=== PATIENT | female | born 1985 | race Two or more races ===

== ENCOUNTER 2016-05-26 04:02 | Inpatient (IN) | payer SELFPAY ==
[2016-05-26] VITALS (12 sets, daily range): BP systolic 95–113; BP diastolic 48–68
[~2016-05-26] VITALS: Ht 160 cm; Wt 52.2 kg
[2016-05-26 04:44] LABS: BILIRUBIN,URINE NEGATIVE (NEG); GLUCOSE,URINE 500 mg/dL (NEG); NITRITE,URINE NEGATIVE (NEG); PH,URINE 5.5; PROTEIN,URINE NEGATIVE (NEG-TRACE)
[2016-05-26] MEDS ORDERED: IV NORMAL SALINE 1000ML BAG 1,000 ML IV ONE (04:45)
[2016-05-26 04:52] LABS: BASO # 0.1 x10^3/uL (0.0-0.2); BASO % 1 % (0-3); EOS % 3 % (0-3); HEMATOCRIT 25.9 % (36.0-47.0); HEMOGLOBIN 8.5 g/dL (12.0-15.5); LYMPH # 1.3 x10^3/uL (1.0-4.8); LYMPH % 11 % (24-48); MEAN CORPUSCULAR HEMOGLOBIN 28 pg (25-35); MEAN CORPUSCULAR HGB CONC 33 g/dL (31-37); MEAN CORPUSCULAR VOLUME 86 fL (79-100); MONO % 7 % (0-9); NEUT % 77 % (31-73); PLATELET COUNT 234 x10^3/uL (140-400); RED BLOOD COUNT 3.02 x10^6/uL (3.50-5.40); RED CELL DISTRIBUTION WIDTH 14.5 % (11.5-14.5); WHITE BLOOD COUNT 11.3 x10^3/uL (4.0-11.0)
[2016-05-26] MEDS ORDERED: MORPHINE SULFATE 4 MG/ML DISP.SYRIN. IV ONE (05:00)
[2016-05-26 05:04] LABS: BACTERIA,URINE 0 /HPF (0-FEW); RBC,URINE >40 /HPF (0-2); SQUAMOUS EPITHELIAL CELL,UR FEW /LPF
--- NOTE | 2016-05-26 05:12 | PHYS DOC ---
Adult General Chief Complaint Chief Complaint: ABDOMINAL PAIN HPI HPI This is a 31-year-old Divehi-speaking female presents with extensive lower abdominal pain that does radiate into her right shoulder. She is also complaining of some spotting. Patient had a ultrasound several days ago at an outpatient clinic that demonstrated possible ectopic. Pt is at an estimated 3-4 weeks gestation by LMP. This is her third , the first two were full term vaginal deliveries without complication. Pt appears in acute distress and mildly pale. Review of Systems Review of Systems Constitutional: Denies fever or chills [] Eyes: Denies change in visual acuity, redness, or eye pain [] HENT: Denies nasal congestion or sore throat [] Respiratory: Denies cough or shortness of breath [] Cardiovascular: No additional information not addressed in HPI [] GI: Has abdominal pain, nausea, vomiting, bloody stools or diarrhea [] : Denies dysuria or hematuria [] Musculoskeletal: Denies back pain or joint pain [] Integument: Denies rash or skin lesions [] Neurologic: Denies headache, focal weakness or sensory changes [] Endocrine: Denies polyuria or polydipsia [] Current Medications Current Medications Current Medications Medications (Trade) Dose Ordered Sig/Eduardo Start Time Stop Time Status Last Admin Dose Admin Morphine Sulfate 4 mg 1X ONCE 05/26/16 05:00 05/26/16 05:07 DC 05/26/16 04:52 4 MG Sodium Chloride (Iv Sodium Chloride 0.9% 1000ml Bag) 1,000 ml @ 1,000 mls/hr 1X ONCE 05/26/16 04:45 05/26/16 05:44 DC 05/26/16 04:53 1,000 MLS/HR Allergies Allergies Allergies Coded Allergies Type Severity Reaction Last Updated Verified No Known Drug Allergies 05/26/16 No Physical Exam Physical Exam Constitutional: Well developed, well nourished, no acute distress, non-toxic appearance. [] HENT: Normocephalic, atraumatic, bilateral external ears normal, oropharynx moist, no oral exudates, nose normal. [] Eyes: PERRLA, EOMI, conjunctiva normal, no discharge. [] Neck: Normal range of motion, no tenderness, supple, no stridor. [] Cardiovascular:Heart rate regular rhythm, no murmur [] Lungs & Thorax: Bilateral breath sounds clear to auscultation [] Abdomen: Bowel sounds normal, soft, lower abdominal tenderness, no masses, no pulsatile masses. [] Skin: Warm, dry, no erythema, no rash. [] Back: No tenderness, no CVA tenderness. [] Extremities: No tenderness, no cyanosis, no clubbing, ROM intact, no edema. [] Neurologic: Alert and oriented X 3, normal motor function, normal sensory function, no focal deficits noted. [] Psychologic: Affect normal, judgement normal, mood normal. [] Current Patient Data Vital Signs Vital Signs Date Time Temp Pulse Resp B/P Pulse Ox O2 Delivery O2 Flow Rate FiO2 05/26/16 05:00 90 99 Room Air 05/26/16 04:30 101/57 05/26/16 04:15 98.8 24 98.8 Lab Values Laboratory Tests Test 05/26/16 03:37 05/26/16 04:13 05/26/16 04:30 POC Urine HCG, Qualitative Hcg positive (Negative) Urine Collection Type Unknown Urine Color Yellow Urine Clarity Clear Urine pH 5.5 Urine Specific [place] >=1.030 Urine Protein Negativemg/dL (NEG-TRACE) Urine Glucose (UA) 500mg/dL (NEG) Urine Ketones (Stick) Negativemg/dL (NEG) Urine Blood Large (NEG) Urine Nitrite Negative (NEG) Urine Bilirubin Negative (NEG) Urine Urobilinogen Dipstick 1.0mg/dL (0.2 mg/dL) Urine Leukocyte Esterase Negative (NEG) Urine RBC >40/HPF (0-2) Urine WBC 1-4/HPF (0-4) Urine Squamous Epithelial Cells Few/LPF Urine Bacteria 0/HPF (0-FEW) Urine Mucus Mod/LPF White Blood Count 11.3x10^3/uL (4.0-11.0) H Red Blood Count 3.02x10^6/uL (3.50-5.40) L Hemoglobin 8.5g/dL (12.0-15.5) L Hematocrit 25.9% (36.0-47.0) L Mean Corpuscular Volume 86fL (79-100) Mean Corpuscular Hemoglobin 28pg (25-35) Mean Corpuscular Hemoglobin Concent 33g/dL (31-37) Red Cell Distribution Width 14.5% (11.5-14.5) Platelet Count 234x10^3/uL (140-400) Neutrophils (%) (Auto) 77% (31-73) H Lymphocytes (%) (Auto) 11% (24-48) L Monocytes (%) (Auto) 7% (0-9) Eosinophils (%) (Auto) 3% (0-3) Basophils (%) (Auto) 1% (0-3) Neutrophils # (Auto) 8.7x10^3uL (1.8-7.7) H Lymphocytes # (Auto) 1.3x10^3/uL (1.0-4.8) Monocytes # (Auto) 0.8x10^3/uL (0.0-1.1) Eosinophils # (Auto) 0.4x10^3/uL (0.0-0.7) Basophils # (Auto) 0.1x10^3/uL (0.0-0.2) Maternal Serum HCG Beta Subunit 825mIU/mL (0-6) H Sodium Level 138mmol/L (136-145) Potassium Level 3.7mmol/L (3.5-5.1) Chloride Level 103mmol/L (98-107) Carbon Dioxide Level 26mmol/L (21-32) Anion Gap 9 (6-14) Blood Urea Nitrogen 13mg/dL (7-20) Creatinine 0.7mg/dL (0.6-1.0) Estimated GFR (Cockcroft-Gault) 97.6 BUN/Creatinine Ratio 19 (6-20) Glucose Level 113mg/dL (70-99) H Calcium Level 8.6mg/dL (8.5-10.1) Total Bilirubin 0.5mg/dL (0.2-1.0) Aspartate Amino Transferase (AST) 11U/L (15-37) L Alanine Aminotransferase (ALT) 13U/L (14-59) L Alkaline Phosphatase 61U/L (46-116) Total Protein 7.2g/dL (6.4-8.2) Albumin 3.8g/dL (3.4-5.0) Albumin/Globulin Ratio 1.1 (1.0-1.7) Laboratory Tests 05/26/16 04:30 Laboratory Tests 05/26/16 04:30 EKG EKG [] Radiology/Procedures Radiology/Procedures Obstetric ultrasound less than 14 weeks with transvaginal imaging. Reason for examination: Severe right-sided pelvic pain and right shoulder discomfort. Bleeding for 4 days. Patient tail and diaphoretic. Positive urine test. Transabdominal and transvaginal ultrasound examination of the pelvis was performed. Examination is limited by patient's pain. The uterus appears to measure approximately 7.9 x 3.9 x 5.7 centimeters in greatest dimensions. The endometrium is not thickened at 3 millimeters. There is no evidence of intrauterine gestation. There is free fluid present in the abdomen. The fluid extends up to the right hepatorenal space. Transvaginally, an intrauterine gestation is not identified. The left ovary measures 3.2 x 2.3 x 2.0 centimeters in greatest dimensions. Again evident is large amount of free fluid. The right ovary is not identified. Impression: No evidence of intrauterine gestation. Large amount of free fluid in the abdomen and pelvis. Ruptured ectopic cannot be excluded. Course & Med Decision Making Course & Med Decision Making Pertinent Labs and Imaging studies reviewed. (See chart for details) This 31-year-old female who has ultrasound findings concerning for possible ruptured ectopic was immediately transferred to the OR for emergent salpingectomy. Her Hgb was 8.5. Her serum quant was 825. Pt was type and crossed for multiple units of blood and given a fluid bolus while in the department. I discussed the emergent nature of the case with the OBGYN, Dr. Ramos , who agreed to come in for emergent salpingectomy. She was transferred to the OR without incident. Dragon Disclaimer Dragon Disclaimer This electronic medical record was generated, in whole or in part, using a voice recognition dictation system. Departure Departure Impression: Primary Impression: Ruptured ectopic Disposition: ADMITTED INPATIENT Admitting Physician: Other Condition: GUARDED Referrals: NO PCP (PCP) JESSICA BOB DO May 26, 2016 05:12
[2016-05-26] MEDS ORDERED: ONDANSETRON PF 4 MG/2 ML VIAL. IV PRN ×2 (05:15→08:45)
[2016-05-26] MEDS ORDERED: IV NORMAL SALINE 1000ML BAG 1,000 ML IV SCH (05:15)
[2016-05-26 05:19] LABS: CALCIUM 8.6 mg/dL (8.5-10.1); CREATININE 0.7 mg/dL (0.6-1.0); GFR 97.6; POTASSIUM 3.7 mmol/L (3.5-5.1)
[2016-05-26 05:26] LABS: ALBUMIN 3.8 g/dL (3.4-5.0); ALBUMIN/GLOBULIN RATIO 1.1 (1.0-1.7); TOTAL BILIRUBIN 0.5 mg/dL (0.2-1.0); TOTAL PROTEIN 7.2 g/dL (6.4-8.2)
[2016-05-26] MEDS: MORPHINE SULFATE 4 MG/ML DISP.SYRIN. IV PRN ×2 (05:33→13:38)
--- NOTE | 2016-05-26 05:39 | RAD ---
Obstetric ultrasound less than 14 weeks with transvaginal imaging. Reason for examination: Severe right-sided pelvic pain and right shoulder discomfort. Bleeding for 4 days. Patient tail and diaphoretic. Positive urine test. Transabdominal and transvaginal ultrasound examination of the pelvis was performed. Examination is limited by patient's pain. The uterus appears to measure approximately 7.9 x 3.9 x 5.7 centimeters in greatest dimensions. The endometrium is not thickened at 3 millimeters. There is no evidence of intrauterine gestation. There is free fluid present in the abdomen. The fluid extends up to the right hepatorenal space. Transvaginally, an intrauterine gestation is not identified. The left ovary measures 3.2 x 2.3 x 2.0 centimeters in greatest dimensions. Again evident is large amount of free fluid. The right ovary is not identified. Impression: No evidence of intrauterine gestation. Large amount of free fluid in the abdomen and pelvis. Ruptured ectopic cannot be excluded. Electronically signed by: Ramona Hummel MD (May 26, 2016 05:37:31)
[2016-05-26] MEDS ORDERED: LIDOCAINE 2% 100 MG/5 ML DISP.SYRIN. ONE (06:11)
[2016-05-26] MEDS ORDERED: DEXAMETHASONE SOD PHOS 20 MG/5 ML VIAL. ONE (06:11)
[2016-05-26] MEDS ORDERED: SUCCINYLCHOLINE 200 MG/10 ML VIAL. ONE (06:11)
[2016-05-26] MEDS ORDERED: ONDANSETRON PF 4 MG/2 ML VIAL. ONE (06:11)
[2016-05-26] MEDS ORDERED: FENTANYL PF 100 MCG/2 ML VIAL. ONE ×2 (06:11→08:43)
[2016-05-26] MEDS ORDERED: PROPOFOL 20 ML IV ONE (06:11)
[2016-05-26] MEDS ORDERED: LORAZEPAM 2 MG/ML VIAL IV ONE (06:15)
--- NOTE | 2016-05-26 06:48 | HP ---
ADMIT DATE: 05/26/2016 HISTORY OF PRESENT ILLNESS: This patient is a 31-year-old lady who is a 3, para 2, last menstrual period 04/2016, comes to the Emergency Room because of vaginal bleeding associated with a acute pelvic pain and patient was seen by the ER physician and because of the bleeding and also test was positive, quantitative HCG being 820, she was seen in consultation because of the ectopic . PHYSICAL EXAMINATION: VITAL SIGNS: Being stable right now. Her hemoglobin is 8. The patient in acute pelvic pain. LUNGS: Clear. HEART: Sounds regular sinus rhythm. ABDOMEN: Quite tender in the pelvic area. PELVIC: Shows moderate vaginal bleeding. On bimanual exam, uterus feels slightly bulky and quite a bit of tenderness in the left adnexal area. Her sonogram shows marked amount of fluid in the abdomen and pelvis. DIAGNOSIS: Acute pelvic pain, possible ectopic with rupture. PLAN: Admission and emergency laparotomy, possible salpingectomy. The details of the surgery, the risks, and complications have been explained to the patient and she is willing for the surgery at the present time. PEACE L[address] MD DR: CHELE/patricia JOB#: [id number] / [id number]
[2016-05-26] MEDS ORDERED: CEFAZOLIN 2GM PREMIX 50 ML IV ONE (07:18)
[2016-05-26] MEDS ORDERED: PHENYLEPHRINE in 0.9% NACL PF 1 MG/10 ML DISP.SYRIN. IV ONE (07:38)
[2016-05-26] MEDS ORDERED: SEVOFLURANE 31 TO 60 MINUTES. IH ONE (07:41)
[2016-05-26] MEDS ORDERED: ROCURONIUM 50 MG/5 ML VIAL. ONE (07:46)
[2016-05-26] MEDS ORDERED: NEOSTIGMINE METHYLSULFATE 5 MG/5 ML SYRINGE. ONE (08:21)
[2016-05-26] MEDS ORDERED: GLYCOPYRROLATE 1 MG/5 ML VIAL. ONE (08:21)
[2016-05-26] MEDS ORDERED: SEVOFLURANE 61 TO 120 MINUTES. IH ONE (08:27)
--- NOTE | 2016-05-26 08:31 | PDOC ---
SUBJECTIVE Subjective Pelvic pain Vaginal Bleeding 5 vweeks OBJECTIVE Objective Acute Pelvic pain Vaginal bleeding Vital Signs Vital Signs Date Time Temp Pulse Resp B/P Pulse Ox O2 Delivery O2 Flow Rate FiO2 05/26/16 06:00 86 100/51 100 Room Air 05/26/16 05:30 96 100 Room Air 05/26/16 05:00 90 99 Room Air 05/26/16 04:30 90 101/57 100 Room Air 05/26/16 04:15 98.8 89 24 101/57 99 Room Air 98.8 I & O Intake and Output 05/26/16 07:00 Intake Total 1000 ml Balance 1000 ml Intake IV Total 1000 ml PHYSICAL EXAM Physical Exam Abdomen quite Tender BP100/70 Pelvic exam done Patient has enlarged uterus Acute tenerness in left adnexal area Possible Ectopic ASSESSMENT/PLAN Assessment/Plan Under [facility] Emergency Laparotomy done Lot of Blood Clots in Abdomen evacuated Left side Tubal With Rupture and Bleeding Left side Salpingectomy done. EBL 1000 c.c. Problems: COMMENT Lab Laboratory Tests Test 05/26/16 03:37 05/26/16 04:13 05/26/16 04:30 Bedside Urine HCG, Qualitative Hcg positive (Negative) Urine Collection Type Unknown Urine Color Yellow Urine Clarity Clear Urine pH 5.5 Urine Specific [place] >=1.030 Urine Protein Negativemg/dL (NEG-TRACE) Urine Glucose (UA) 500mg/dL (NEG) Urine Ketones (Stick) Negativemg/dL (NEG) Urine Blood Large (NEG) Urine Nitrite Negative (NEG) Urine Bilirubin Negative (NEG) Urine Urobilinogen Dipstick 1.0mg/dL (0.2 mg/dL) Urine Leukocyte Esterase Negative (NEG) Urine RBC >40/HPF (0-2) Urine WBC 1-4/HPF (0-4) Urine Squamous Epithelial Cells Few/LPF Urine Bacteria 0/HPF (0-FEW) Urine Mucus Mod/LPF White Blood Count 11.3x10^3/uL (4.0-11.0) Red Blood Count 3.02x10^6/uL (3.50-5.40) Hemoglobin 8.5g/dL (12.0-15.5) Hematocrit 25.9% (36.0-47.0) Mean Corpuscular Volume 86fL (79-100) Mean Corpuscular Hemoglobin 28pg (25-35) Mean Corpuscular Hemoglobin Concent 33g/dL (31-37) Red Cell Distribution Width 14.5% (11.5-14.5) Platelet Count 234x10^3/uL (140-400) Neutrophils (%) (Auto) 77% (31-73) Lymphocytes (%) (Auto) 11% (24-48) Monocytes (%) (Auto) 7% (0-9) Eosinophils (%) (Auto) 3% (0-3) Basophils (%) (Auto) 1% (0-3) Neutrophils # (Auto) 8.7x10^3uL (1.8-7.7) Lymphocytes # (Auto) 1.3x10^3/uL (1.0-4.8) Monocytes # (Auto) 0.8x10^3/uL (0.0-1.1) Eosinophils # (Auto) 0.4x10^3/uL (0.0-0.7) Basophils # (Auto) 0.1x10^3/uL (0.0-0.2) Maternal Serum HCG Beta Subunit 825mIU/mL (0-6) Sodium Level 138mmol/L (136-145) Potassium Level 3.7mmol/L (3.5-5.1) Chloride Level 103mmol/L (98-107) Carbon Dioxide Level 26mmol/L (21-32) Anion Gap 9 (6-14) Blood Urea Nitrogen 13mg/dL (7-20) Creatinine 0.7mg/dL (0.6-1.0) Estimated GFR (Cockcroft-Gault) 97.6 BUN/Creatinine Ratio 19 (6-20) Glucose Level 113mg/dL (70-99) Calcium Level 8.6mg/dL (8.5-10.1) Total Bilirubin 0.5mg/dL (0.2-1.0) Aspartate Amino Transf (AST/SGOT) 11U/L (15-37) Alanine Aminotransferase (ALT/SGPT) 13U/L (14-59) Alkaline Phosphatase 61U/L (46-116) Total Protein 7.2g/dL (6.4-8.2) Albumin 3.8g/dL (3.4-5.0) Albumin/Globulin Ratio 1.1 (1.0-1.7) SATHYANARAYANA,SARASWATHI MD May 26, 2016 08:31
[2016-05-26] MEDS ORDERED: IV RINGERS,LACTATED 1000ML 1,000 ML IV SCH (08:43)
[2016-05-26] MEDS ORDERED: LIDOCAINE 1% 1 ML SYRINGE. ID PRN (08:45)
[2016-05-26] MEDS ORDERED: HYDROMORPHONE 2 MG/ML VIAL. IV PRN (08:45)
[2016-05-26] MEDS ORDERED: FENTANYL PF 100 MCG/2 ML VIAL. IV PRN (08:45)
[2016-05-26] MEDS: FENTANYL PF 100 MCG/2 ML VIAL. IV PRN ×4 (08:45→09:50)
[2016-05-26] MEDS ORDERED: PROCHLORPERAZINE 10 MG/2 ML VIAL. IV PRN (08:45)
[2016-05-26] MEDS: MORPHINE SULFATE 2 MG/ML DISP.SYRIN. IV PRN ×2 (09:08→09:39)
[2016-05-26] MEDS ORDERED: OXYCODONE/APAP 5/325 TABLET. PO PRN (14:45)
[2016-05-26] MEDS: IV DEXTROSE 5%-LACT RINGERS 1,000 ML IV SCH ×2 (16:03→23:13)
[2016-05-26] MEDS: OXYCODONE/APAP 5/325 TABLET. PO PRN ×2 (19:21→22:25)
[2016-05-26] MEDS ORDERED: DIAZEPAM 5 MG TABLET PO PRN (22:45)
[2016-05-27 02:34] VITALS: BP 105/51
[2016-05-27] MEDS: OXYCODONE/APAP 5/325 TABLET. PO PRN (05:00)
[2016-05-27 05:19] VITALS: BP 100/56
[2016-05-27 05:23] LABS: BASO % 0 % (0-3); EOS % 0 % (0-3); HEMATOCRIT 27.2 % (36.0-47.0); HEMOGLOBIN 9.2 g/dL (12.0-15.5); LYMPH # 1.3 x10^3/uL (1.0-4.8); LYMPH % 13 % (24-48); MEAN CORPUSCULAR HEMOGLOBIN 29 pg (25-35); MEAN CORPUSCULAR HGB CONC 34 g/dL (31-37); MEAN CORPUSCULAR VOLUME 85 fL (79-100); MONO % 10 % (0-9); NEUT % 76 % (31-73); PLATELET COUNT 180 x10^3/uL (140-400); RED BLOOD COUNT 3.21 x10^6/uL (3.50-5.40); RED CELL DISTRIBUTION WIDTH 15.6 % (11.5-14.5); WHITE BLOOD COUNT 10.3 x10^3/uL (4.0-11.0)
[2016-05-27 05:41] LABS: CALCIUM 8.4 mg/dL (8.5-10.1); CREATININE 0.5 mg/dL (0.6-1.0); GFR 143.9; POTASSIUM 3.7 mmol/L (3.5-5.1)
--- NOTE | 2016-05-27 10:02 | PDOC ---
SUBJECTIVE Subjective Patient very sleepy C/O Rashes on necck OBJECTIVE Objective Abdomen soft Vital signs stable Vital Signs Vital Signs Date Time Temp Pulse Resp B/P Pulse Ox O2 Delivery O2 Flow Rate FiO2 05/27/16 08:00 Room Air 05/27/16 05:19 98.2 76 20 100/56 Room Air 98.2 05/27/16 05:00 97 10.0 05/27/16 02:34 98.4 71 16 105/51 Room Air 98.4 05/26/16 23:25 97 10.0 05/26/16 22:25 97 10.0 05/26/16 21:22 98.2 60 20 102/60 98.2 05/26/16 19:50 Mask 10.0 05/26/16 19:21 18 05/26/16 17:01 97.9 72 18 95/56 97 Room Air 97.9 05/26/16 14:30 98.7 76 20 103/59 97 Room Air 98.7 05/26/16 13:15 98.0 81 18 111/55 98 Room Air 98.0 05/26/16 12:12 98.0 84 18 113/48 97 Room Air 98.0 05/26/16 11:40 98.3 85 20 108/55 98 Room Air 98.3 05/26/16 11:10 98.0 77 18 99/57 96 Room Air 98.0 05/26/16 11:10 98.0 77 18 99/57 98.0 05/26/16 10:53 97.9 78 18 97/60 97 Room Air 97.9 05/26/16 10:38 97.8 88 20 107/68 97 Room Air 97.8 05/26/16 10:20 97.6 73 20 102/56 97.6 05/26/16 10:20 97.6 73 20 102/56 95 Room Air 97.6 I & O Intake and Output 05/27/16 07:00 Intake Total 3337 ml Output Total 3900 ml Balance -563 ml Intake Oral 740 ml IV Total 2587 ml Blood Product IV Normal Saline Flush 10 ml Output Urine Total 3900 ml PHYSICAL EXAM Physical Exam Incision healing well No vaginal bleeding ASSESSMENT/PLAN Assessment/Plan Explained to patient about surgery has received 2 units of Blood Transfusion Hb 10.1 Patient can go home tomorrow Problems: COMMENT Lab Laboratory Tests Test 05/26/16 14:55 05/27/16 03:45 Hemoglobin 10.9g/dL (12.0-15.5) 9.2g/dL (12.0-15.5) White Blood Count 10.3x10^3/uL (4.0-11.0) Red Blood Count 3.21x10^6/uL (3.50-5.40) Hematocrit 27.2% (36.0-47.0) Mean Corpuscular Volume 85fL (79-100) Mean Corpuscular Hemoglobin 29pg (25-35) Mean Corpuscular Hemoglobin Concent 34g/dL (31-37) Red Cell Distribution Width 15.6% (11.5-14.5) Platelet Count 180x10^3/uL (140-400) Neutrophils (%) (Auto) 76% (31-73) Lymphocytes (%) (Auto) 13% (24-48) Monocytes (%) (Auto) 10% (0-9) Eosinophils (%) (Auto) 0% (0-3) Basophils (%) (Auto) 0% (0-3) Neutrophils # (Auto) 7.9x10^3uL (1.8-7.7) Lymphocytes # (Auto) 1.3x10^3/uL (1.0-4.8) Monocytes # (Auto) 1.1x10^3/uL (0.0-1.1) Eosinophils # (Auto) 0.0x10^3/uL (0.0-0.7) Basophils # (Auto) 0.0x10^3/uL (0.0-0.2) Sodium Level 139mmol/L (136-145) Potassium Level 3.7mmol/L (3.5-5.1) Chloride Level 105mmol/L (98-107) Carbon Dioxide Level 25mmol/L (21-32) Anion Gap 9 (6-14) Blood Urea Nitrogen 5mg/dL (7-20) Creatinine 0.5mg/dL (0.6-1.0) Estimated GFR (Cockcroft-Gault) 143.9 Glucose Level 152mg/dL (70-99) Calcium Level 8.4mg/dL (8.5-10.1) PEACE LANE MD May 27, 2016 10:02
[2016-05-27] MEDS ORDERED: DIPHENHYDRAMINE HCL 25 MG CAPSULE PO PRN (11:00)
[2016-05-27] MEDS ORDERED: BISACODYL 10 MG SUPP.RECT. PR ONE (11:00)
[2016-05-27] MEDS: HYDROCODONE/APAP 5/325MG TABLET. PO PRN ×2 (11:17→19:51)
[2016-05-27 11:20] VITALS: BP 102/52
[2016-05-27 18:00] VITALS: BP 105/72
--- NOTE | 2016-05-27 22:21 | OP ---
DATE OF SURGERY: PREOPERATIVE DIAGNOSES: Pelvic pain, possible ruptured ectopic . POSTOPERATIVE DIAGNOSES: Pelvic pain, possible ruptured ectopic with left side tubal with rupture. OPERATION PERFORMED: Laparotomy. Evacuation of the blood clot from the cul-de-sac, left side salpingectomy. DESCRIPTION OF PROCEDURE: The patient was taken to the operating room. Under general anesthesia, she was placed in the dorsal supine position. Rockwell catheter introduced in the bladder for continuous bladder drainage. Lower abdomen was prepped and draped in the usual manner. Pfannenstiel incision was made. Abdomen opened in layers. Visualization of the pelvic structures revealed abdomen basically filled with blood and also lot of blood clots in the cul-de-sac area. Evacuation of the blood clots was done and it was noted there was ruptured tubal on the left side fallopian tube. Haritha clamp was applied in the mesosalpinx and the left side fallopian tube with the and rupture was excised and subjected for pathological examination. All the blood clots were also sent for pathological examination. After the ligation of the mesosalpinx, there was no other active bleeding. Abdomen was rinsed with about 300 mL of normal saline and after this the abdomen closed in layers using continuous 0 chromic catgut sutures for the peritoneum, the muscle, the fascia, 3-0 plain continuous sutures applied for subcutaneous tissue, 3-0 Vicryl subcutaneous sutures were placed. Pressure dressing was given. The patient was sent to the recovery room in good condition. No complications encountered time of the procedure. Estimated blood loss about 1000 mL. She did receive 1 unit of blood during the time of the surgery and another unit will be given in the recovery room. Her vital signs have been stable. The patient tolerated the procedure well. No complications. PEACE LANE MD DR: CHELE/patricia JOB#: [id number] / [id number]
[2016-05-27] MEDS ORDERED: NEOSTIGMINE METHYLSULFATE 5 MG/5 ML SYRINGE. IV ONE (22:30)
[2016-05-27 22:40] VITALS: BP 114/69
[2016-05-27] MEDS: IBUPROFEN 600 MG TABLET. PO PRN (22:58)
[2016-05-27] MEDS ORDERED: NEOSTIGMINE METHYLSULFATE 5 MG/5 ML SYRINGE. IM ONE (23:15)
[2016-05-27] MEDS ORDERED: BISACODYL 10 MG SUPP.RECT. PR PRN (23:30)
[2016-05-28 01:15] VITALS: BP 87/47
[2016-05-28 06:05] VITALS: BP 91/58
[2016-05-28] MEDS ORDERED: INFLUENZA VAX SCREEN BY RX. MC ONE (09:00)
[2016-05-28] MEDS ORDERED: FLU VACC QUAD 2016-17 (36MOS+)/PF 0.5 ML SYRINGE. VAX IM ONE (09:00)
[2016-05-28] MEDS: IBUPROFEN 600 MG TABLET. PO PRN (09:33)
[2016-05-28] MEDS ORDERED: SODIUM PHOSPHATES 19/7GM 133 ML ENEMA. PR ONE (11:00)
[2016-05-28] MEDS: HYDROCODONE/APAP 5/325MG TABLET. PO PRN (11:47)
--- NOTE | 2016-05-28 13:24 | PDOC ---
SUBJECTIVE Subjective Abdomen soft No Problems OBJECTIVE Objective No fever Doing ok Vital Signs Vital Signs Date Time Temp Pulse Resp B/P Pulse Ox O2 Delivery O2 Flow Rate FiO2 05/28/16 06:05 98.2 72 18 91/58 Room Air 98.2 05/28/16 01:15 98.2 67 20 87/47 98 Room Air 98.2 05/27/16 22:40 99.1 76 20 114/69 98 Room Air 99.1 05/27/16 21:00 18 Room Air 05/27/16 19:51 18 Room Air 05/27/16 18:00 97.9 77 18 105/72 Room Air 97.9 PHYSICAL EXAM Physical Exam Incision healing ok Pt wants to go home ASSESSMENT/PLAN Assessment/Plan Will see her in 2 weeks in office Doing ok Problems: PEACE LANE MD May 28, 2016 13:24
[2016-05-28 14:30] VITALS: BP 99/56
== END 2016-05-28 15:10 | disposition home or self-care (01) | DRG 777 ==
LOC: ER 04:02 → 3 NORTH 05:07
PROVIDERS: ADMIT Obstetrics & Gynecology; ATTEND Obstetrics & Gynecology
PROC: 10T20ZZ Resection of Products of Conception, Ectopic, Open Approach (ICD-10-PCS; 2016-05-26)
PROC: 0UC Female Reproductive System, Extirpation (ICD-10-PCS; 2016-05-26)
PROC: 30233N1 Transfusion of Nonautologous Red Blood Cells into Peripheral Vein, Percutaneous Approach (ICD-10-PCS; 2016-05-26)
PROC: 0UT60ZZ Resection of Left Fallopian Tube, Open Approach (ICD-10-PCS; principal; 2016-05-26 06:37)
DX: O00.10 Tubal pregnancy without intrauterine pregnancy (principal); Z3A.01 Less than 8 weeks gestation of pregnancy
CPT/HCPCS: 36415; 76801; 76817; 80048; 80053; 81001; 81025; 84702; 85018; 85027; 86850; 86900; 86901; 86920; 90686; 96361; 96374; J0330; J0690; J1100; J2270; J2370; J2405; J2704; J2710; J3010; J3490; J7030; P9016; Q0163; 99285-25

== ENCOUNTER 2019-12-03 09:13 | Emergency (ER) | payer SELFPAY ==
[~2019-12-03] VITALS: Ht 170.2 cm; Wt 57.6 kg
[2019-12-03 09:38] LABS: BILIRUBIN,URINE NEGATIVE (NEG); COLOR,URINE YELLOW; NITRITE,URINE NEGATIVE (NEG); PH,URINE 5.5 (<5.0-8.0); PROTEIN,URINE 30 mg/dL (NEG-TRACE); UROBILINOGEN,URINE 0.2 mg/dL (0.2 mg/dL)
[2019-12-03] MEDS ORDERED: HYDROmorphone 2 MG/ML VIAL IV ONE (09:45)
[2019-12-03] MEDS ORDERED: HYDROmorphone 2 MG/ML VIAL IVP ONE (09:45)
[2019-12-03 09:52] LABS: CLARITY,URINE HAZY; SQUAMOUS EPITHELIAL CELL,UR MANY /LPF
[2019-12-03 09:55] LABS: BACTERIA,URINE MODERATE /HPF (0-FEW); RBC,URINE OCC /HPF (0-2); YEAST,URINE PRESENT /HPF
--- NOTE | 2019-12-03 10:14 | PHYS DOC ---
Past Medical History Past Medical History: No Pertinent History Past Surgical History: Other Additional Past Surgical Histo: ECTOPIC REMOVAL 3-4 YEARS AGO Smoking Status: Never Smoker Alcohol Use: None Drug Use: None General Adult EDM: Chief Complaint: FLANK PAIN HPI: HPI: 34 yo (h/o ectopic 3-4yrs ago with surgery, reports she has both ovaries), presents to the ED with complaints of left lower pelvic pain since Saturday (6 days ago) described as pressure-like, " all over, in my stomach and left ovary," some relief with motrin 400mg yesterday. LMP 11/14. Was seen by pmd, Dr. Janis Zazueta 11/30, basic labs with Cr of 1.32. Reports recent unremar kable Pap smear. EMR was reviewed and patient had left salpingectomy 2016 due to ruptured left- sided ectopic requiring 2 units PRBC. [employer] phone used for hx/pe/dx Review of Systems: Review of Systems: Constitutional: Denies fever or chills. [] Eyes: Denies change in visual acuity. [] HENT: Denies nasal congestion or sore throat. [] Respiratory: Denies cough or shortness of breath. [] Or hemoptysis Cardiovascular: Denies chest pain or edema. [] GI: Denies melena, hematochezia, hematemesis, nausea, vomiting, diarrhea. [] : Denies dysuria. [] Or hematuria or vaginal bleeding Musculoskeletal: Denies back pain or joint pain. [] Integument: Denies rash. [] Neurologic: Denies headache, focal weakness or sensory changes. [] Endocrine: Denies polyuria or polydipsia. [] Lymphatic: Denies swollen glands. [] Psychiatric: Denies depression or anxiety. [] Heart Score: Risk Factors: Risk Factors: DM, Current or recent (<one month) smoker, HTN, HLP, family history of CAD, obesity. Risk Scores: Score 0 - 3: 2.5% MACE over next 6 weeks - Discharge Home Score 4 - 6: 20.3% MACE over next 6 weeks - Admit for Clinical Observation Score 7 - 10: 72.7% MACE over next 6 weeks - Early Invasive Strategies Current Medications: Current Medications Medications (Trade) Dose Ordered Sig/Eduardo Start Time Stop Time Status Last Admin Dose Admin Hydromorphone HCl (Dilaudid) 0.5 mg 1X ONCE 12/03/19 09:45 12/03/19 09:46 DC 12/03/19 10:07 0.5 MG Allergies: Allergies: Allergies Coded Allergies Type Severity Reaction Last Updated Verified No Known Drug Allergies 05/26/16 No Physical Exam: PE: Constitutional: Well developed, well nourished, HENT: Normocephalic, atraumatic, bilateral external ears normal, oropharynx moist, no oral exudates, nose normal. [] Eyes: EOMI, conjunctiva normal, no discharge. [] Neck: Normal range of motion, no tenderness, supple, Cardiovascular:Heart rate regular rhythm, no murmur [] Lungs & Thorax: speaking in full sentences, bl equal chest rise Abdomen: Bowel sounds normal, soft, no tenderness, no masses, no pulsatile masses. [] Skin: Warm, dry, no erythema, no rash. [] Back: No tenderness, no CVA tenderness. [] Extremities: No tenderness, no cyanosis, no clubbing, ROM intact, no edema. [] Neurologic: Alert and oriented X 3, normal motor function, normal sensory function, no focal deficits noted. [] Psychologic: Affect normal, judgement normal, mood crying/emotional Pelvic: Chaperoned by RN, normal external genitalia, thick white vaginal discharge, normal-appearing multiparous cervix with no cervical erythema or TTP- scant blood approximately 1 cc at cervical os, reports tenderness to palpation over both adnexa's although patient tolerated manual exam with no distress (was given dilaudid on arrival) Current Patient Data: Labs: Laboratory Tests Test 12/03/19 09:30 12/03/19 09:33 Urine Collection Type Unknown Urine Color Yellow Urine Clarity Hazy Urine pH 5.5 (<5.0-8.0) Urine Specific Dumas <=1.005 (1.000-1.030) Urine Protein 30 mg/dL (NEG-TRACE) Urine Glucose (UA) Negative mg/dL (NEG) Urine Ketones (Stick) Negative mg/dL (NEG) Urine Blood Small (NEG) Urine Nitrite Negative (NEG) Urine Bilirubin Negative (NEG) Urine Urobilinogen Dipstick 0.2 mg/dL (0.2 mg/dL) Urine Leukocyte Esterase Trace (NEG) Urine RBC Occ /HPF (0-2) Urine WBC 5-10 /HPF (0-4) Urine Squamous Epithelial Cells Many /LPF Urine Bacteria Moderate /HPF (0-FEW) Urine Yeast Present /HPF POC Urine HCG, Qualitative Hcg negative (Negative) Vital Signs: Vital Signs Date Time Temp Pulse Resp B/P (MAP) Pulse Ox O2 Delivery O2 Flow Rate FiO2 12/03/19 10:07 18 99 12/03/19 09:22 98.3 62 127/66 (86) Room Air 98.3 EKG: EKG: [] Radiology/Procedures: Radiology/Procedures: IMAGING REPORT Signed PATIENT: MERVIN GAXIOLAOUNT: [id number] : 1985 LOCATION: ER AGE: 34 SEX: F EXAM STATUS: REG ER ORD. PHYSICIAN: BHAVANA OAKES DO REASON: severe left pelvic pain, PROCEDURE: PELVIS W/TV Examination: PELVIS W/TV History: severe left pelvic pain; history of left salpingectomy in 2017 due to ectopic gestation Comparison/Correlation: None Findings: Transabdominal and transvaginal pelvic ultrasound examination was performed. Transvaginal technique was utilized to better assess the adnexal structures. Uterus measures 7.6 cm x 6.3 cm x 4.1 cm. Fibroid at the uterine fundus is noted measuring up to 1.6 cm diameter. Endometrial thickness of 0.8 cm present. No collections within the uterine cavity. Uterus is retroverted. Complicated left ovarian follicle measuring 1.9 cm x 1.4 cm x 1.2 cm is present with internal echoes. Multiple small cirrhotic appearing left adnexal follicles are present. Small right adnexal follicles are also present and is Right ovary measures 2.4 cm x 2.3 cm x 2 cm. Left ovary measures 2.7 cm x 3 cm x 2.8 cm. Normal ovarian flow is seen bilaterally. Impression: Complicated left ovarian follicle which is pelvic physiologic. Consider follow-up in 16 weeks to 24 weeks to assess resolution. No evidence of ovarian torsion. Fibroid involves the uterine fundus. Electronically signed by: Ag Villasenor MD (12/03/2019 11:24 AM) [id number] DICTATED and SIGNED BY: AG VILLASENOR MD DATE: 12/03/19 1124 Course & Med Decision Making: Course & Med Decision Making Pertinent Labs and Imaging studies reviewed. (See chart for details) Concern for UTI, does not meet sepsis criteria, no leukocytosis, no fever or tachycardia, rocephin given in ed. Labs show slightly worsening renal insufficiency, 1.9 today, was 1.3 few days ago. UA contaminated with small leukocyte esterase, yeast, 5-10 wbc, few rbc and small blood. Yeast infection treated in the ED with Diflucan. Will treat with Macrobid and Azo. Recommended follow-up with primary care physician in 1 week to repeat urinalysis and kidney function. Transvaginal ultrasound shows normal blood flow to both ovaries, with complicated left ovarian follicle. Will refer to [facility] for repeat ultrasound in 4 months. Strict ED return precautions were given for worsening fever, severe abdominal or back pain or dehydration. Encouraged urgent outpatient follow-up with PMD and [facility]. Life-threatening processes were considered but are low suspicion at this time, given history and physical exam. Pt was educated on all prescription medications and adverse effects. All patient's questions were answered and pt was stable at time of discharge. Life-threatening differential includes aortic dissection, aortic aneurysm, acute coronary syndrome, surgical abdomen (appendicitis, cholecystitis, ischemic bowel, strangulated hernia, etc), bowel obstruction or volvulus, bladder outlet obstruction, gastrointestinal bleeding, inflammatory bowel disease, peptic ulcer disease, sepsis, diverticular disease, ureterolithiasis, nephrolithiasis, ovarian torsion, ectopic , vaginal hemorrhage, or genitourinary infection. I spoken with the patient and her caregivers. I explained the patient's condition, diagnoses and treatment plan based on the information available to me at this time. I have answered the patient and her caregiver's questions and addressed any concerns. The patient and her caregivers have a good understanding of patient's diagnosis, condition and treatment plan as can be expected at this point. Vital signs have been stable. Patient's condition is stable and appropriate for discharge from the emergency department. Patient will pursue further outpatient evaluation with primary care physician or other designated or consulting physician as outlined in the discharge instructions. The patient and/or caregivers are agreeable to this plan of care and follow-up instructions have been explained in detail. The patient and/or caregivers have received these instructions in written form and have expressed an understanding of the discharge instructions. The patient and/or caregivers are aware that any significant change of condition or worsening of symptoms should prompt immediate return to this or the closest emergency department or call to 911. Roni Disclaimer: Roni Disclaimer: This electronic medical record was generated, in whole or in part, using a voice recognition dictation system. Departure Departure Impression: Primary Impression: UTI (urinary tract infection) Additional Impressions: Renal insufficiency Normocytic anemia Vaginal yeast infection Follicular cyst of left ovary Disposition: HOME, SELF-CARE Condition: STABLE Referrals: NO PCP (PCP) Dr. Henderson in 1 week to repeat renal function and urinalysis Family Medicine Address: [address], [facility] [address] [place] [address] Patient Instructions: Acute Kidney Injury, Candidal Vulvovaginitis, [id number], Urinary Tract Infection Additional Instructions: [facility] Obstetrics and Gynecology - 4 weeks to repeat transvaginal US Address: [address], [facility] [address] [place] [address] EMERGENCY DEPARTMENT GENERAL DISCHARGE INSTRUCTIONS Thank you for coming to [facility] Emergency Department (ED) today and trusting us with you care. We trust that you had a positive experience in our Emergency Department. If you wish to speak to the department management, you may call the Director at [phone]. YOUR FOLLOW UP INSTRUCTIONS ARE FOLLOWS: 1. Do you have a private Doctor? If you do not have a private doctor, please ask for a resource list of physicians or clinics that may be able to assist you with follow up care. 2. The Emergency Physicain has interpreted your x-rays. The X-Ray specialist will also review them. If there is a change in the findings, you will be notified in 48 hours when at all possible. 3. A lab test or culture has been done, your results will be reviewed and you will be notified if you need a change in treatment. ADDITIONAL INSTRUCTIONS AND INFORMATION: 1. Your care today has been supervised by a physician who is specially trained in emergency care. Many problems require more than one evaluation for a complete diagnosis and treatment. We recommend that you schedule your follow up appointment as recommended to ensure complete treatment of you illness or injury. If you are unable to obtain follow up care and continue to have a problem, or if your condition worsens, we recommend that you return to the ED. 2. We are not able to safely determine your condition over the phone nor are we able to give sound medical advice over the phone. For these safety reasons, if you call for medical advice we will ask you to come to the ED for further evaluation. 3. If you have any questions regarding these discharge instructions please call the ED at [phone]. SAFETY INFORMATION: In the interest of safety, wellness, and injury prevention; we encourage you to wear your sealbelt, if you smoke; quite smoking, and we encourage family to use a protective helmet for bicycling and other sporting events that present an increased risk for head injury. IF YOUR SYMPTOMS WORSEN OR NEW SYMPTOMS DEVELOP, OR YOU HAVE CONCERNS ABOUT YOUR CONDITION; OR IF YOUR CONDITION WORSENS WHILE YOU ARE WAITING FOR YOUR FOLLOW UP APPOINTMENT; EITHER CONTACT YOUR PRIMARY CARE DOCTOR, THE PHYSICIAN WHOSE NAME AND NUMBER YOU WERE GIVEN, OR RETURN TO THE ED IMMEDIATELY. Scripts Phenazopyridine Hcl (PHENAZOPYRIDINE HCL) 200 Mg Tablet 1 TAB PO TID for urinary discomfort for 3 Days, #9 TAB 0 Refills after food Prov: BHAVANA OAKES DO 12/03/19 Nitrofurantoin Monohyd/M-Cryst (MACROBID 100 MG CAPSULE) 100 Mg Capsule 1 CAP PO BID for 7 Days, #14 CAP 0 Refills Prov: BHAVANA OAKES DO 12/03/19 BHAVANA OAKES DO Dec 03, 2019 10:14
[2019-12-03 10:19] LABS: BASO % 1 % (0-3); EOS # 0.1 x10^3/uL (0.0-0.7); EOS % 1 % (0-3); HEMATOCRIT 33.5 % (36.0-47.0); HEMOGLOBIN 11.4 g/dL (12.0-15.5); LYMPH # 0.8 x10^3/uL (1.0-4.8); LYMPH % 12 % (24-48); MEAN CORPUSCULAR HEMOGLOBIN 29 pg (25-35); MEAN CORPUSCULAR HGB CONC 34 g/dL (31-37); MEAN CORPUSCULAR VOLUME 86 fL (79-100); MONO # 0.6 x10^3/uL (0.0-1.1); MONO % 10 % (0-9); NEUT % 76 % (31-73); PLATELET COUNT 232 x10^3/uL (140-400); RED BLOOD COUNT 3.88 x10^6/uL (3.50-5.40); RED CELL DISTRIBUTION WIDTH 15.5 % (11.5-14.5); WHITE BLOOD COUNT 6.5 x10^3/uL (4.0-11.0)
[2019-12-03 10:30] LABS: PROTHROMBIN TIME PATIENT 15.2 SEC (11.7-14.0)
[2019-12-03 10:35] LABS: CALCIUM 8.7 mg/dL (8.5-10.1); CREATININE 1.9 mg/dL (0.6-1.0); GFR 30.3; POTASSIUM 4.3 mmol/L (3.5-5.1)
[2019-12-03 10:41] LABS: ALBUMIN 3.3 g/dL (3.4-5.0); ALBUMIN/GLOBULIN RATIO 0.9 (1.0-1.7); TOTAL BILIRUBIN 0.8 mg/dL (0.2-1.0); TOTAL PROTEIN 6.8 g/dL (6.4-8.2)
[2019-12-03] MEDS ORDERED: IV NORMAL SALINE 1000ML BAG 1,000 ML IV ONE (11:15)
[2019-12-03] MEDS ORDERED: cefTRIAXone IV Push 1 GM VIAL. IVP ONE (11:15)
[2019-12-03] MEDS ORDERED: FLUCONAZOLE 100 MG TABLET. PO ONE (11:15)
--- NOTE | 2019-12-03 11:27 | RAD ---
Examination: PELVIS W/TV History: severe left pelvic pain; history of left salpingectomy in 2017 due to ectopic gestation Comparison/Correlation: None Findings: Transabdominal and transvaginal pelvic ultrasound examination was performed. Transvaginal technique was utilized to better assess the adnexal structures. Uterus measures 7.6 cm x 6.3 cm x 4.1 cm. Fibroid at the uterine fundus is noted measuring up to 1.6 cm diameter. Endometrial thickness of 0.8 cm present. No collections within the uterine cavity. Uterus is retroverted. Complicated left ovarian follicle measuring 1.9 cm x 1.4 cm x 1.2 cm is present with internal echoes. Multiple small cirrhotic appearing left adnexal follicles are present. Small right adnexal follicles are also present and is Right ovary measures 2.4 cm x 2.3 cm x 2 cm. Left ovary measures 2.7 cm x 3 cm x 2.8 cm. Normal ovarian flow is seen bilaterally. Impression: Complicated left ovarian follicle which is pelvic physiologic. Consider follow-up in 16 weeks to 24 weeks to assess resolution. No evidence of ovarian torsion. Fibroid involves the uterine fundus. Electronically signed by: Ag Earl MD (12/03/2019 11:24 AM) [id number]
[2019-12-03] MEDS ORDERED: PHEN-444 PO (12:51)
[2019-12-03] MEDS ORDERED: NITR100C62 PO (12:51)
[2019-12-03 12:52] VITALS: BP 128/67
[2019-12-04 20:08] LABS: GC PROBE Negative (Negative)
== END 2019-12-03 13:20 | disposition home or self-care (01) ==
LOC: ER 09:13
DX: N39.0 Urinary tract infection, site not specified (principal); N83.02 Follicular cyst of left ovary; N28.9 Disorder of kidney and ureter, unspecified; D64.9 Anemia, unspecified; B37.3 Candidiasis of vulva and vagina
CPT/HCPCS: 76830; 76856; 80053; 81001; 81025; 84702; 85025; 85610; 85730; 87086; 87491; 87591; 96361; 96374; 96375; 99285; J0696; J1170; J7030; Q0111